=== PATIENT | female | born 1965 | race Two or more races ===

== ENCOUNTER 2017-05-07 14:25 | Emergency (ER) | payer MEDICAID ==
[2017-05-07 14:35] VITALS: BP 158/94
[2017-05-07] MEDS ORDERED: IBUPROFEN 800 MG TAB PO ONE (15:30)
== END 2017-05-07 15:48 | disposition home or self-care (01) ==
LOC: ER 14:25
DX: S93.401A Sprain of unspecified ligament of right ankle, initial encounter (principal); W18.39XA Other fall on same level, initial encounter; Y93.01 Activity, walking, marching and hiking; Y92.89 Other specified places as the place of occurrence of the external cause; Y99.8 Other external cause status
CPT/HCPCS: 73610

== ENCOUNTER 2018-04-22 06:49 | Emergency (ER) | payer MEDICAID ==
[~2018-04-22] VITALS: Ht 152.4 cm; Wt 108.9 kg
[2018-04-22 07:13] VITALS: BP 141/87
[2018-04-22] MEDS ORDERED: IBUPROFEN 800 MG TAB PO ONE (08:00)
== END 2018-04-22 17:52 | disposition home or self-care (01) ==
LOC: ER 06:49
DX: S62.654A Nondisplaced fracture of middle phalanx of right ring finger, initial encounter for closed fracture (principal); W01.198A Fall on same level from slipping, tripping and stumbling with subsequent striking against other object, initial encounter; Y93.89 Activity, other specified; Y99.8 Other external cause status; Y92.810 Car as the place of occurrence of the external cause
CPT/HCPCS: 29130; 73130

== ENCOUNTER 2018-07-19 07:06 | Emergency (ER) | payer MEDICAID ==
[~2018-07-19] VITALS: Ht 152.4 cm; Wt 90.7 kg
[2018-07-19] MEDS ORDERED: SODIUM CHLORIDE 0.9% 1,000 ML IVB ONE (07:40)
[2018-07-19 08:43] LABS: Albumin 3.3 g/dL (3.4-5.0); Basophils # (auto) 0.1 uL; Basophils % (auto) 0.7 % (0.0-2.0); Calcium 8.4 mg/dL (8.5-10.1); Eosinophils # (auto) 0.2 uL; Eosinophils % (auto) 1.5 % (0.0-7.0); Hemoglobin 14.1 g/dL (12.2-16.2); Lymphocytes % (auto) 6.6 % (10.0-50.0); Magnesium 1.9 mg/dL (1.6-2.6); Mean Corpuscular Hemoglobin 30.1 pg (28.0-32.0); Mean Corpuscular Hgb Conc. 32.8 g/dL (32.0-36.0); Mean Corpuscular Volume 91.7 fL (80.0-100.0); Monocytes # (auto) 0.6 uL; Neutrophils # (auto) 12.6 uL; Neutrophils % (auto) 87.2 % (37.0-80.0); Nucleated Red Blood Cells % 0.1 %; Platelet Count (auto) 245 10^3/uL (140-450); Potassium 3.6 mmol/L (3.5-5.1); Red Blood Cells 4.69 10^6/uL (4.0-5.20); Red Cell Distribution Width 13.9 % (11.8-14.3); White Blood Cell 14.5 10^3/uL (4.4-10.8)
[2018-07-19 08:44] LABS: Urine Bacteria FEW /hpf (None Seen); Urine Blood 2+ /uL (Negative); Urine Specific Gravity 1.011 (1.001-1.035); Urine WBC 182 /hpf (0 - 5)
[2018-07-19 08:46] LABS: Bilirubin, Total 0.7 mg/dL (0.2-1.0)
[2018-07-19] MEDS ORDERED: cefTRIAXone 1GM/50ML D5W 50 ML IV ONE (09:00)
[2018-07-19] MEDS ORDERED: ACETAMINOPHEN 500 MG TAB PO ONE (10:00)
[2018-07-19 10:04] VITALS: BP 138/72
== END 2018-07-19 10:03 | disposition home or self-care (01) ==
LOC: ER 07:06
DX: N12 Tubulo-interstitial nephritis, not specified as acute or chronic (principal); E11.9 Type 2 diabetes mellitus without complications; I10 Essential (primary) hypertension; E46 Unspecified protein-calorie malnutrition; E78.5 Hyperlipidemia, unspecified; Z68.39 Body mass index [BMI] 39.0-39.9, adult
CPT/HCPCS: 36415; 71046; 80053; 81001; 83690; 83735; 85025; 93005; 96365; 99284; J0696

== ENCOUNTER 2020-10-02 09:21 | Emergency (ER) | payer MEDICAID, OTHER ==
[~2020-10-02] VITALS: Ht 152.4 cm; Wt 105.2 kg
[2020-10-02 09:56] VITALS: BP 163/79
[2020-10-02] MEDS ORDERED: METHOCARBAMOL 500 MG TAB PO ONE (10:45)
[2020-10-02] MEDS ORDERED: IBUPROFEN 600 MG TAB PO ONE (10:45)
== END 2020-10-02 13:03 | disposition home or self-care (01) ==
LOC: ER 09:21
DX: S16.1XXA Strain of muscle, fascia and tendon at neck level, initial encounter (principal); E78.5 Hyperlipidemia, unspecified; E11.9 Type 2 diabetes mellitus without complications; I10 Essential (primary) hypertension; M54.6 Pain in thoracic spine; V43.52XA Car driver injured in collision with other type car in traffic accident, initial encounter; Y93.89 Activity, other specified; Y92.488 Other paved roadways as the place of occurrence of the external cause; Y99.8 Other external cause status
CPT/HCPCS: 72040; 72070

== ENCOUNTER 2021-04-05 11:16 | Emergency (ER) | payer MEDICAID ==
[~2021-04-05] VITALS: Ht 152.4 cm; Wt 106.6 kg
[2021-04-05 11:32] VITALS: BP 149/86
== END 2021-04-05 13:15 | disposition home or self-care (01) ==
LOC: ER 11:16
DX: G44.209 Tension-type headache, unspecified, not intractable (principal); H60.92 Unspecified otitis externa, left ear; I10 Essential (primary) hypertension; E11.9 Type 2 diabetes mellitus without complications; E78.5 Hyperlipidemia, unspecified
CPT/HCPCS: 70450

== ENCOUNTER 2021-08-06 07:21 | Emergency (ER) | payer MEDICAID ==
[~2021-08-06] VITALS: Ht 152.4 cm; Wt 106.6 kg
[2021-08-06 07:27] VITALS: BP 159/84
[2021-08-06] MEDS ORDERED: cefTRIAXone SOD 1,000 MG VL IM ONE (09:00)
[2021-08-06] MEDS ORDERED: methylPREDNISolone SOD SUCC 125 MG/2 ML VL IM ONE (09:00)
[2021-08-06] MEDS ORDERED: BENZ100C19 PO (09:03)
[2021-08-06] MEDS ORDERED: AMOX-277 PO (09:03)
[2021-08-06] MEDS ORDERED: LIDOCAINE 1% HCL (LOCAL ANESTH.) INJ 20ML MDV ONE (09:18)
== END 2021-08-06 09:42 | disposition home or self-care (01) ==
LOC: ER 07:21
DX: J06.9 Acute upper respiratory infection, unspecified (principal); E11.9 Type 2 diabetes mellitus without complications; I10 Essential (primary) hypertension; E78.5 Hyperlipidemia, unspecified; Z20.822 Contact with and (suspected) exposure to COVID-19
CPT/HCPCS: 36415; 71045; 87426; 96372; 99284; J0696; J2001; J2930

== ENCOUNTER 2022-04-21 12:49 | Emergency (ER) | payer MEDICAID ==
[~2022-04-21] VITALS: Ht 152.4 cm; Wt 95.9 kg
[~2022-04-21 12:49] MED LIST: AMOX-277 PO; BENZ100C19 PO
[2022-04-21 14:02] LABS: Basophils # (auto) 0.1 10 ^3/uL (0-0.2); Basophils % (auto) 1.3 % (0.0-2.0); Eosinophils # (auto) 0.7 10 ^3/uL (0-0.8); Eosinophils % (auto) 9.3 % (0.0-7.0); Hematocrit 42.7 % (36.0-46.0); Hemoglobin 14.4 g/dL (12.2-16.2); Lymphocytes % (auto) 25.9 % (10.0-50.0); Mean Corpuscular Hemoglobin 30.6 pg (28.0-32.0); Mean Corpuscular Hgb Conc. 33.6 g/dL (32.0-36.0); Monocytes # (auto) 0.4 10 ^3/uL (0-1.3); Monocytes % (auto) 5.7 % (0.0-12.0); Neutrophils # (auto) 4.5 10 ^3/uL (1.6-8.6); Neutrophils % (auto) 57.8 % (37.0-80.0); Nucleated Red Blood Cells % 0.1 %; Red Cell Distribution Width 13.4 % (11.8-14.3); White Blood Cell 7.8 10^3/uL (4.4-10.8)
[2022-04-21 14:21] LABS: Albumin 3.1 g/dL (3.4-5.0); Calcium 8.3 mg/dL (8.5-10.1); Potassium 3.8 mmol/L (3.5-5.1)
[2022-04-21 14:25] LABS: Bilirubin, Total 0.4 mg/dL (0.2-1.0); Total Protein 7.2 g/dL (6.4-8.2)
[2022-04-21 15:04] LABS: Urine Amorphous Crystal FEW /hpf (None Seen); Urine Bacteria MANY /hpf (None Seen); Urine Blood 2+ /uL (Negative); Urine Specific Gravity 1.014 (1.001-1.035); Urine WBC 15 /hpf (0 - 5)
[2022-04-21] MEDS ORDERED: CIPR-173 PO (15:37)
[2022-04-21] MEDS ORDERED: TRAM-297 PO (15:37)
[2022-04-21 17:25] VITALS: BP 144/94
== END 2022-04-21 15:49 | disposition home or self-care (01) ==
LOC: ER 12:57
DX: N39.0 Urinary tract infection, site not specified (principal); K42.9 Umbilical hernia without obstruction or gangrene; E11.9 Type 2 diabetes mellitus without complications; E78.5 Hyperlipidemia, unspecified; I10 Essential (primary) hypertension; Z88.1 Allergy status to other antibiotic agents; Z88.2 Allergy status to sulfonamides
CPT/HCPCS: 36415; 74176; 80053; 81001; 82962; 85025